=== PATIENT | male | born 1955 | race African-American/Black ===

== ENCOUNTER 2017-01-07 02:27 | Emergency (ER) | payer MEDICAID ==
[~2017-01-07] VITALS: Ht 188 cm; Wt 95.0 kg
[2017-01-07 02:36] VITALS: BP 121/77
== END 2017-01-07 02:57 | disposition left against medical advice (07) ==
LOC: ER 02:27
DX: Z53.21 Procedure and treatment not carried out due to patient leaving prior to being seen by health care provider (principal)